=== PATIENT | male | born 1990 | race Caucasian/White ===

== ENCOUNTER 2024-08-11 16:25 | Emergency (ER) | payer OTHER, MEDICAID ==
[~2024-08-11] VITALS: Ht 167.6 cm; Wt 68.0 kg
[2024-08-11 16:30] VITALS: O2SAT 98
[2024-08-11] MEDS ORDERED: CEPH500T MT (17:48)
[2024-08-11 18:10] VITALS: BP 127/72; PULSE 61; RESP 18; TEMP 36.9; O2SAT 98
== END 2024-08-11 18:15 ==
LOC: ER 16:25
DX: S90.425A Blister (nonthermal), left lesser toe(s), initial encounter (principal); F20.9 Schizophrenia, unspecified; X58.XXXA Exposure to other specified factors, initial encounter; Y93.89 Activity, other specified; Y92.89 Other specified places as the place of occurrence of the external cause; Y99.8 Other external cause status
CPT/HCPCS: 99283